=== PATIENT | female | born 1960 | race Caucasian/White ===

== ENCOUNTER 2020-04-27 21:07 | Emergency (ER) | payer BC ==
[~2020-04-27] VITALS: Ht 165.1 cm; Wt 74.8 kg
[2020-04-27 21:20] VITALS: BP 123/70
[2020-04-27] MEDS ORDERED: NACL 0.9% 1,000 ML IV ONE (21:35)
[2020-04-28 02:14] LABS: BARBITURATE, URINE NEGATIVE ng/ml (NEG <=200); BENZODIAZEPINE, URINE NEGATIVE ng/mL (NEG <=200); COCAINE, URINE NEGATIVE ng/mL (NEG <=300)
[2020-04-28 02:15] LABS: CANNABINOID, URINE POSITIVE ng/mL (NEG <=50); OPIATE, URINE NEGATIVE ng/mL (NEG <=2000); PHENCYCLIDINE SCREEN,URINE NEGATIVE ng/mL (NEG <=25)
[2020-04-28 02:55] VITALS: BP 113/68
== END 2020-04-28 02:55 | disposition home or self-care (01) ==
LOC: MED 21:07
DX: T40.7X1A Poisoning by cannabis (derivatives), accidental (unintentional), initial encounter (principal); R00.2 Palpitations; F12.10 Cannabis abuse, uncomplicated; F15.10 Other stimulant abuse, uncomplicated; Y92.9 Unspecified place or not applicable; Z88.0 Allergy status to penicillin
CPT/HCPCS: 80305; 93005; 99284; J7030